=== PATIENT | male | born 1985 | race Caucasian/White ===

== ENCOUNTER 2017-04-03 19:46 | Emergency (ER) | payer SELFPAY ==
[~2017-04-03] VITALS: Ht 177.8 cm; Wt 116.0 kg
[~2017-04-03 19:46] MED LIST: BACT2OIN TOP; BACT800T5 PO; IBUP800T23 PO
[2017-04-03 19:48] VITALS: BP 120/84; PULSE 116; RESP 18; TEMP 98.2; O2SAT 96
[2017-04-03] MEDS ORDERED: KETOROLAC TROMETHAMINE 60 MG/2 ML (IM) VIAL IM ONE (20:30)
--- NOTE | 2017-04-03 20:39 | PD ---
HPI Chief Complaint: Musculoskeletal Complaint Time Seen by Provider: 20:23 Travel History International Travel<30 days: No Contact w/Intl Traveler<30days: No Traveled to known affect area: No History of Present Illness HPI 31-year-old male presents to the emergency room for evaluation of right-sided rib pain for the past 2 days. Patient had no trauma but reports lying on his chest across several trusses in an attic. States when he rolled over, he heard a loud pop over his right rib, and had immediate pain. He didn't think much of it at the time but as the day progressed, his pain worsened. He took ibuprofen without significant relief. Pain is worsened with deep breathing, coughing. Patient denies fever, chills, nausea, vomiting, or cough. No chronic medical conditions or daily medications. PFSH Past Medical History Medical History: Denies Significant Hx Diminished Hearing: No Gastrointestinal Disorders: Yes (ULCERS) Tetanus Vaccination: < 5 Years Influenza Vaccination: No ?: Not Past Surgical History Oral Surgery: Yes (WISDOM TEETH) Other Surgery: Yes (RIGHT WRIST, LEFT TIB FIB) Social History Alcohol Use: No Tobacco Use: No Substance Use: No Allergies-Medications (Allergen,Severity, Reaction): Coded Allergies: amoxicillin (Unverified Allergy, Severe, "LIPS SWELL UP", 04/02/17) Reported Meds & Prescriptions Reported Meds & Active Scripts Active Ibuprofen 800 Mg Tab 800 Mg PO Q8H PRN Bactroban 2% Oint (22 gm) (Mupirocin) 22 Gm Oint 2 % TOP BID 10 Days APPLY TO AFFECTED AREAS Ibuprofen 800 Mg Tab 800 Mg PO TID Bactrim DS (Sulfamethoxazole-Trimethoprim DS) 1 Tab Tab 2 Tab PO BID 7 Days Review of Systems Except as stated in HPI: all other systems reviewed are Neg Physical Exam Narrative GENERAL: Well-nourished, well-developed male in no acute distress. Afebrile. Ambulatory. SKIN: Focused skin assessment warm/dry. HEAD: Normocephalic. EYES: No scleral icterus. No injection or drainage. NECK: Supple, trachea midline. No JVD or lymphadenopathy. CARDIOVASCULAR: Regular rate and rhythm without murmurs, gallops, or rubs. RESPIRATORY: Breath sounds equal bilaterally. No accessory muscle use. CHEST: Moderate tenderness to palpation of rib #7. No obvious deformity or crepitus. No retractions or use of accessory muscles. Data Data Last Documented VS Vital Signs Date Time Temp Pulse Resp B/P Pulse Ox O2 Delivery O2 Flow Rate FiO2 04/03/17 20:10 20 04/03/17 19:48 98.2 116 120/84 96 Orders Ketorolac Inj (Toradol Inj) (04/03/17 20:30) MDM Medical Decision Making Medical Screen Exam Complete: Yes Emergency Medical Condition: Yes Medical Record Reviewed: Yes Differential Diagnosis Costochondritis, muscle spasm, strain, fracture, contusion Narrative Course 31-year-old male presents to the emergency room for evaluation of right-sided anterior rib pain after injuring it yesterday. Patient states he twisted funny while lying across trusses in the attic and heard a loud pop. He has had worsening pain since then. Physical exam is unremarkable. There is tenderness to palpation over the costochondral joint of rib #7. Lungs sounds clear and equal bilaterally. No crepitus or obvious deformity. Vital signs stable. No indication for imaging at this time as it will not change treatment plan. He was given Toradol in the emergency room. This is likely costochondritis. Patient was encouraged to continue breathing deep to prevent pneumonia. He will be discharged with prescription for ibuprofen and told to follow-up with a primary care physician or return for worsening symptoms. He understands and agrees to plan. Diagnosis Primary Impression: Costochondral joint sprain Qualified Code: S23.41XA - Sprain of costochondral joint, initial encounter Referrals: Primary Care Physician Patient Instructions: Costochondritis (ED), General Instructions Additional Instructions: Rest and drink plenty of fluids. Take ibuprofen with food as directed, as needed for pain. Apply ice to the affected area for 20 minutes at a time, as needed for pain and swelling. Follow-up with a primary care physician. Return to the emergency room for worsening symptoms. Scripts Ibuprofen 800 Mg [id number] Mg PO Q8H PRN (Pain/Inflammation) #21 TAB Ref 0 Prov:Gi Carter MD 04/03/17 Disposition: 01 DISCHARGE HOME Condition: Stable Terri Gillespie Apr 03, 2017 20:39
[2017-04-03] MEDS ORDERED: IBUP800T23 PO (20:40)
== END 2017-04-03 20:53 | disposition home or self-care (01) ==
LOC: PHEFT 19:46
DX: S23.41XA Sprain of ribs, initial encounter (principal); Z87.19 Personal history of other diseases of the digestive system; X58.XXXA Exposure to other specified factors, initial encounter
CPT/HCPCS: 96372; 99284; J1885

== ENCOUNTER 2017-06-15 18:50 | Emergency (ER) | payer OTHER ==
[~2017-06-15 18:50] MED LIST changes: +IBUP1TAB7 PO
[2017-06-15 19:14] VITALS: BP 124/80; PULSE 72; RESP 14; TEMP 98.5; O2SAT 99
[2017-06-15] MEDS ORDERED: IBUPROFEN 600 MG TAB PO ONE (19:15)
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
[2017-06-15] MEDS ORDERED: ACETAMINOPHEN/HYDROcodone 325 MG/5 MG TAB PO ONE (20:00)
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
== END 2017-06-15 20:15 | disposition home or self-care (01) ==
LOC: NEPD 18:50
DX: R07.9 Chest pain, unspecified (principal); Z79.1 Long term (current) use of non-steroidal anti-inflammatories (NSAID); Z88.0 Allergy status to penicillin; V43.62XA Car passenger injured in collision with other type car in traffic accident, initial encounter
CPT/HCPCS: 71010; 99283